=== PATIENT | male | born 1965 | race Caucasian/White ===

== ENCOUNTER → 2019-12-13 | Outpatient (CLI) | payer SELFPAY ==
--- NOTE | 2019-12-13 14:21 | US ---
EXAMINATION TYPE: US scrotum with doppler. Grayscale and color Doppler Duplex imaging performed of joanne moya scrotum. DATE OF EXAM: 12/13/2019 COMPARISON: NONE CLINICAL HISTORY: Right testicular pain N50.81. EXAM MEASUREMENTS: TESTICLES: Right Testicle: 3.3 x 1.9 x 2.9 cm Left Testicle: 4.5 x 2.0 x 2.9 cm EPIDIDYMIS HEAD: Right Epididymis: 1.4 cm Left Epididymis: 1.2 cm Doppler performed to assess for testicular vascularity; good bilateral color flow and waveforms are s een. There is no evidence of testicular torsion. Presence of hydroceles: Yes, bilaterally, larger on the right measuring 4.7 cm Presence of varicoceles: No Right side scrotal harjinder visualized measuring 0.5 x 0.3 x 0.4 cm IMPRESSION: 1. Bilateral right greater than left hydroceles.
== END | disposition home or self-care (01) ==
LOC: RADUSMAIN 12:45
DX: N43.3 Hydrocele, unspecified (principal)
CPT/HCPCS: 76870; 93975